=== PATIENT | male | born 1950 | race Native Hawaiian/Other Pacific Islander ===

== ENCOUNTER 2018-01-05 05:47 | Emergency (ER) | payer OTHER ==
[~2018-01-05] VITALS: Ht 180.3 cm; Wt 98.9 kg
[~2018-01-05 05:47] MED LIST: ALTOPREV40 MG PO; BACLOFEN20 MG PO; CATAFLAM50 MG PO; CLON1TAB18 PO; HYDR10TA47 PO; LISI20TA24 PO; LOTEMAX0.52 OP; MISO200T2 PO
[2018-01-05 05:52] VITALS: TEMP 97.5
[2018-01-05 06:19] VITALS: BP 140/80
== END 2018-01-05 06:19 | disposition home or self-care (01) ==
LOC: ED 05:47
DX: Z48.02 Encounter for removal of sutures (principal)

== ENCOUNTER 2018-02-23 10:38 | Outpatient (CLI) | payer OTHER | END 2018-02-23 19:12 | disposition home or self-care (01) | LOC: RAD 10:38 | DX: M54.5 Low back pain (principal) ==

== ENCOUNTER 2018-04-14 10:35 | Outpatient (CLI) | payer OTHER | END 2018-04-14 21:00 | disposition home or self-care (01) | LOC: MRI 10:35 | DX: M54.16 Radiculopathy, lumbar region (principal) ==

== ENCOUNTER 2018-05-04 12:26 | Outpatient (CLI) | payer OTHER ==
[2018-05-04 12:52] LABS: PLATELET COUNT 205 K/uL (142-355)
[2018-05-04 13:11] LABS: POTASSIUM 4.1 mmol/L (3.6-5.2)
== END 2018-05-04 22:45 | disposition home or self-care (01) ==
LOC: LABW 12:26
PROVIDERS: Family Medicine
DX: E11.9 Type 2 diabetes mellitus without complications (principal); E78.00 Pure hypercholesterolemia, unspecified
CPT/HCPCS: 36415; 80053; 80061; 81000; 83036; 84439; 84443; 85027

== ENCOUNTER 2018-06-01 09:36 | Outpatient (CLI) | payer OTHER | END 2018-06-01 22:05 | disposition home or self-care (01) | LOC: LABW 09:36 | DX: Z12.11 Encounter for screening for malignant neoplasm of colon (principal); R79.89 Other specified abnormal findings of blood chemistry | CPT/HCPCS: 82272 ==

== ENCOUNTER 2018-06-17 08:37 | Outpatient (CLI) | payer OTHER | END 2018-06-17 19:21 | disposition home or self-care (01) | LOC: US 08:37 | DX: R74.8 Abnormal levels of other serum enzymes (principal); Z13.6 Encounter for screening for cardiovascular disorders ==

== ENCOUNTER 2020-11-21 11:35 | Day surgery (SDC) | payer OTHER ==
[2020-11-14 10:35] LABS: PLATELET COUNT 172 K/uL (142-355)
[2020-11-14 10:45] LABS: POTASSIUM 4.8 mmol/L (3.6-5.2)
[~2020-11-21] VITALS: Ht 30.5 cm; Wt 0.5 kg
== END 2020-11-21 14:50 | disposition home or self-care (01) ==
LOC: OR 11:35
PROVIDERS: ATTEND Internal Medicine Gastroenterology
PROC: 0DBL8ZZ Excision of Transverse Colon, Via Natural or Artificial Opening Endoscopic (ICD-10-PCS; principal; 2020-11-21)
DX: D12.3 Benign neoplasm of transverse colon (principal); K57.30 Diverticulosis of large intestine without perforation or abscess without bleeding; K64.8 Other hemorrhoids; Z12.11 Encounter for screening for malignant neoplasm of colon; Z20.822 Contact with and (suspected) exposure to COVID-19
CPT/HCPCS: 80053; 85027; 87635; J2704; U0003

== ENCOUNTER 2021-01-14 10:05 | Outpatient (CLI) | payer OTHER ==
[2021-01-22 10:36] LABS: POTASSIUM 5.1 mmol/L (3.6-5.2)
[2021-01-22 10:37] LABS: PLATELET COUNT 200 K/uL (142-355)
== END 2021-01-14 23:59 | disposition home or self-care (01) ==
LOC: LABW 10:05
PROVIDERS: ATTEND Family Medicine
DX: N50.811 Right testicular pain (principal); N50.89 Other specified disorders of the male genital organs
CPT/HCPCS: 36415; 80053; 81000; 84154; 85027

== ENCOUNTER 2022-03-25 10:54 | Outpatient (CLI) | payer OTHER | END 2022-03-25 18:50 | disposition home or self-care (01) | LOC: RAD 10:54 | PROVIDERS: ATTEND Family Medicine | DX: M79.605 Pain in left leg (principal); G58.8 Other specified mononeuropathies ==

== ENCOUNTER 2022-07-28 10:16 | Emergency (ER) | payer OTHER ==
[~2022-07-28] VITALS: Ht 180.3 cm; Wt 96.2 kg
[2022-07-28 11:26] LABS: PLATELET COUNT 180 K/uL (142-355)
[2022-07-28 11:30] LABS: POTASSIUM 3.9 mmol/L (3.6-5.2)
[2022-07-28] MEDS ORDERED: NITROGLYCERIN0.4 MG SL (13:06)
[2022-07-28 13:19] VITALS: BP 109/67; TEMP 98.9
== END 2022-07-28 13:19 | disposition home or self-care (01) ==
LOC: ED 10:16
PROVIDERS: Emergency Medicine Emergency Medical Services
DX: R07.89 Other chest pain (principal)
CPT/HCPCS: 80053; 83735; 83880; 84484; 85027; 85610; 93005; 96360; 96361; 99284